=== PATIENT | male | born 1955 | race Caucasian/White ===

== ENCOUNTER 2018-02-13 08:45 | Emergency (ER) | payer OTHER, MEDICAID ==
[2018-02-13 08:50] VITALS: BP 155/101
[2018-02-13] MEDS ORDERED: TDAP ADULT 0.5 ML INJ (BOOSTRIX) IM ONE (08:57)
--- NOTE | 2018-02-13 08:57 | EDPHY ---
H & P Stated Complaint: Skin tear on L arm; "woke up with it", no injury;afraid to clean it himself Time Seen by Provider: 02/13/18 08:53 HPI/ROS: HPI: This is a 62-year-old male who presents with Chief Complaint: left upper arm cut Location: Left upper arm Quality: Cut Duration: This morning Signs and Symptoms: No bleeding, no radiation, no numbness, no weakness, no tingling, no incontinence, no decreased range of motion, no swelling, no pain, no fever Timing: Acute Severity:mild Context: Patient is right-hand dominant, presents with complaints of waking up this morning with a cut on his left upper arm just above his elbow joint. He is unsure of how he sustained this injury. He does not remember falling yesterday and woke up in his bed. He denies any pain/bleeding/paresthesias/ decreased range of motion/warmth. He is unsure of his last tetanus shot. He is not a diabetic. Modifying Factors: Comment: ROS: see HPI Constitutional: No fever, no chills, no weight loss Eyes: No blurred vision Respiratory: No shortness of breath, no cough Cardiovascular: No chest pain Gastrointestinal: No nausea, no vomiting no diarrhea Genitourinary: No dysuria Extremities: No myalgias Neurologic: No weakness, no numbness Skin: No rashes Hematologic: No bruising, no bleeding MEDICAL/SURGICAL/SOCIAL HISTORY: Medical/surgical history: schizophrenia, HTN, colostomy w/reversal, SBO, COPD Social history: Lives alone. Uses the bus for transportation. At times uses a cane to aid ambulation due to chronic low back pain. CONSTITUTIONAL: Extremely well-appearing polite and cooperative elderly white male, appropriately dressed, awake and alert, no obvious distress HEENT: Atraumatic and normocephalic. EXTREMITIES: 2/2 pulses, strength 5/5, left ELBOW: Full extension to 180, flexion to 150, no tenderness over medial epicondyle, no tenderness over lateral epicondyle, no effusion. DIP/PIP/MCP flexion/extension intact with good light touch sensation. no deformities, no clubbing, no cyanosis or edema. NEUROLOGICAL: no focal neuro deficits. GCS 15. Light touch sensation intact. SKIN: Warm and dry, 3/4 inch superficial linear abrasion left upper arm lateral aspect above the left elbow joint; no active bleeding. no erythema. no rash. Good capillary refill. Source: Patient Exam Limitations: No limitations - Personal History Current Tetanus Diphtheria and Acellular Pertussis (TDAP): Yes Tetanus Vaccine Date: unkown - Medical/Surgical History Hx Asthma: No Hx Chronic Respiratory Disease: No Hx Diabetes: No Hx Cardiac Disease: No Hx Renal Disease: No Hx Cirrhosis: No Hx Alcoholism: No Hx HIV/AIDS: No Hx Splenectomy or Spleen Trauma: No Other PMH: schizophrenia, HTN, colostomy w/reversal, SBO, COPD - Social History Smoking Status: Current every day smoker Constitutional: Initial Vital Signs Temperature (C) 36.4 C 02/13/18 08:46 Heart Rate 76 02/13/18 08:46 Respiratory Rate 18 02/13/18 08:46 Blood Pressure 155/101 H 02/13/18 08:46 O2 Sat (%) 98 02/13/18 08:46 O2 Delivery Mode Room Air Allergies/Adverse Reactions: cephalexin monohydrate [From [employer]] Allergy (Unknown, Verified 02/13/18 08:46) Other-Enter Comments Home Medications: Medication Instructions Recorded Benztropine Mesylate [Cogentin (*)] 2 mg PO DAILY 03/05/15 fluPHENAZine HCL [Prolixin 10 MG 10 mg PO DAILY 03/05/15 (*)] Lisinopril [Zestril 10 mg (*)] 10 mg PO 02/13/18 Omeprazole 40 mg PO 02/13/18 Medical Decision Making ED Course/Re-evaluation: Tetanus booster provided Area clean with soap and water; bacitracin and then clean sterile dressing applied. Elbow has full range of motion with no signs of effusion; x-ray imaging not indicated. No signs of infection antibiotics are not indicated. Verbal and written wound care instructions provided No signs of neurovascular compromise/tenting of skin/compartment syndrome/ extremities and joints examined above and below area of concern and are neurovascularly intact/bursitis/septic arthritis/cellulitis. This patient was seen under the supervision of my secondary supervising physician. I evaluated care for this patient independently. Differential Diagnosis: Differential diagnosis includes but is not limited to abrasion, laceration, cellulitis, tenosynovitis, septic arthritis. Departure - Departure Disposition: Home, Routine, Self-Care Clinical Impression: Abrasion of left upper arm, initial encounter Condition: Good Instructions: Abrasion (ED) Additional Instructions: Keep the dressing dry and in place for 48 hours. After 48 hours, you may remove the dressing; wash the site daily with mild soap and water; then pat dry. Apply over the counter topical antibiotic ointment daily until fully healed. Take Tylenol 650 mg every 4 hours and/or Ibuprofen 600 mg every 8 hours with food as needed for pain. Return to the ER immediately if you experience redness, red streaks, have fevers /chills, flu like symptoms, limited range of motion, or any other symptoms that concern you. Referrals: NARCISA VELASQUEZ [Primary Care Provider] - Follow Up Only If Needed
== END 2018-02-13 09:09 | disposition home or self-care (01) ==
DX: S40.812A Abrasion of left upper arm, initial encounter (principal); I10 Essential (primary) hypertension; J44.9 Chronic obstructive pulmonary disease, unspecified; F17.200 Nicotine dependence, unspecified, uncomplicated; Z23 Encounter for immunization; X58.XXXA Exposure to other specified factors, initial encounter

== ENCOUNTER 2018-09-02 17:22 | Emergency (ER) | payer OTHER, MEDICAID ==
[2018-09-02] MEDS ORDERED: KETOROLAC 30 MG/1 ML SDV IM ONE (18:55)
--- NOTE | 2018-09-02 18:56 | EDPHY ---
H & P Smoking Status: Heavy smoker Time Seen by Provider: 09/02/18 18:46 HPI/ROS: CHIEF COMPLAINT: Chronic low back pain HISTORY OF PRESENT ILLNESS: The patient is a 63-year-old male with history of chronic low back pain of unclear etiology. He states he has had multiple MRIs the 1st of which was in 2013 and last of which was approximately a year ago. He is followed by his primary care doctor at [facility] who has appointment to follow-up with regarding his back pain next Thursday. States he has to be treated with tramadol for his pain but currently has only been using ibuprofen which is not controlling his pain. He lives independently but was able to drive himself to the emergency room and is able to ambulate. Denies any numbness or weakness in his legs. He does report radiation of the low back pain into both of his legs. States this is not new and this is usual chronic back pain who does feel the pain this or worsen. He denies any saddle paresthesias, fever, incontinence of bladder or stool. REVIEW OF SYSTEMS: Constitutional: No fever, no chills. Eyes: No discharge. ENT: No sore throat. Cardiovascular: No chest pain, no palpitations. Respiratory: No cough, no shortness of breath. Gastrointestinal: No abdominal pain, no vomiting. Genitourinary: No hematuria. Musculoskeletal: + back pain. Skin: No rashes. Neurological: No headache. (Parth Carrillo) Physical Exam: General Appearance: Alert and no distress. ENT: normal dentition. No tonsillar exudate or swelling. Eyes: Pupils equal and round no injection. Respiratory: Chest is nontender, lungs are clear to auscultation. Cardiac: regular rate and rhythm. No lower extremity edema Gastrointestinal: Abdomen is soft and nontender, no masses, bowel sounds normal. Musculoskeletal: Neck is supple and nontender. Extremities have full range of motion and are nontender without deformity Skin: No rashes or lesions. Neuro: Cranial nerves grossly intact. No nystagmus. Equal strength and sensation in lower extremities. Ambulatory. (Parth Carrillo) Constitutional: Initial Vital Signs Temperature (C) 36.4 C 09/02/18 17:28 Heart Rate 95 09/02/18 17:28 Respiratory Rate 16 09/02/18 17:28 Blood Pressure 123/94 H 09/02/18 17:28 O2 Sat (%) 97 09/02/18 17:28 O2 Delivery Mode Room Air Allergies/Adverse Reactions: cephalexin monohydrate [From [employer]] Allergy (Unknown, Verified 09/02/18 17:27) Other-Enter Comments Home Medications: Medication Instructions Recorded Benztropine Mesylate [Cogentin (*)] 2 mg PO DAILY 03/05/15 fluPHENAZine HCL [Prolixin 10 MG 10 mg PO DAILY 03/05/15 (*)] Lisinopril [Zestril 10 mg (*)] 10 mg PO 02/13/18 Omeprazole 40 mg PO 02/13/18 Tramadol HCl 50 mg PO Q6 PRN #18 tablet 09/02/18 Medical Decision Making Procedures: 63-year-old male here with chronic back pain. He is requesting prescription for pain control at home. After him a shot of Toradol here and a prescription and asked him if he felt comfortable with this plan for disposition and he agrees with this plan. He is given IM Toradol and his pain improved. He was able to ambulate from the emergency room. (Parth Carrillo) ED Course/Re-evaluation: I did not see this patient while he was in the emergency department. However his care was discussed with the PA while the patient was in the department. I agree with treatment plan and management (Savage Shaffer) Differential Diagnosis: Cauda equina, fracture, neoplasm, sciatica, epidural abscess, hip fracture, degenerative disc disease (Parth Carrillo) - Data Points Medications Given: Discontinued Medications Ketorolac Tromethamine (Toradol) 30 mg IM EDNOW ONE Stop: 09/02/18 18:56 Last Admin: 09/02/18 19:05 Dose: 30 mg Departure - Departure Disposition: Home, Routine, Self-Care Clinical Impression: Chronic low back pain with sciatica Condition: Good Instructions: Chronic Back Pain (DC) Additional Instructions: Please follow up with her primary care physician as planned next Thursday. Take tramadol as needed for pain. Return to the ER for loss of control of her bladder or bowels, numbness around her anus, inability to walk or other worrisome symptoms. Referrals: Ericka Melendez MD [Primary Care Provider] - As per Instructions Prescriptions: Tramadol HCl 50 mg PO Q6 PRN #18 tablet PRN Reason: Pain, Breakthrough
[2018-09-02 19:27] VITALS: BP 138/87
== END 2018-09-02 19:31 | disposition home or self-care (01) ==
DX: M54.5 Low back pain (principal); G89.29 Other chronic pain
CPT/HCPCS: 96372; 99284; J1885

== ENCOUNTER 2018-09-03 03:26 | Emergency (ER) | payer OTHER, MEDICAID ==
[2018-09-03] MEDS ORDERED: KETOROLAC 30 MG/1 ML SDV ONE (03:53)
[2018-09-03] MEDS ORDERED: KETOROLAC 30 MG/1 ML SDV IM ONE (03:54)
--- NOTE | 2018-09-03 04:14 | EDPHY ---
H & P Stated Complaint: sciatic pain Time Seen by Provider: 09/03/18 03:37 HPI/ROS: HPI The patient presents with low back pain which is achy in nature which has been present over the last several days and radiates down both of his legs to his toes but is most prominent on his left side. He has a history of sciatica and has previously had an epidural steroid injection about 4 years ago and has had MRI. He says he has a disc herniation at L4-L5. He was previously taking tramadol 3 times a day when he was a [facility] patient. He recently changed his care to [facility]. He had not had back pain up until a few days ago. He was seen in the ER yesterday and was given an injection of Toradol and tramadol. He has not filled his tramadol prescription. He was told to come back if his back pain continued so when he was having trouble sleeping this morning he decided to come in. He does say he has schizophrenia and this is making things challenging for him. He does not have any leg weakness, changes in his bowel or bladder function, fever. REVIEW OF SYSTEMS 10 systems were reviewed and negative with the exception of the elements mentioned in the history of present illness. PMHx: Schizophrenia, hypertension, COPD Soc Hx: Primary care is at [facility], cigarette smoker PHYSICAL General Appearance: Alert, no distress Eyes: Pupils equal and round no pallor or injection ENT, Mouth: Mucous membranes moist Respiratory: There are no retractions, lungs are clear to auscultation Cardiovascular: Regular rate and rhythm Gastrointestinal: Abdomen is soft and non-tender, no masses, bowel sounds normal Back: There is tenderness at the sciatic notch bilaterally with low back tenderness at approximately L4 and L5 Neurological: A&O, cranial nerves 2-12 intact, he has 5/5 strength in his lower extremities and sensation is intact to light touch, he does not have a positive straight leg test Skin: Warm and dry, no rashes Musculoskeletal: Neck is supple non tender Extremities: symmetrical, full range of motion Psychiatric: Patient is oriented X 3, there is no agitation Source: Patient Exam Limitations: No limitations - Personal History Current Tetanus/Diphtheria Vaccine: Yes Current Tetanus Diphtheria and Acellular Pertussis (TDAP): Yes Tetanus Vaccine Date: unkown - Medical/Surgical History Hx Asthma: No Hx Chronic Respiratory Disease: Yes Hx Diabetes: No Hx Cardiac Disease: No Hx Renal Disease: No Hx Cirrhosis: No Hx Alcoholism: No Hx HIV/AIDS: No Hx Splenectomy or Spleen Trauma: No Other PMH: schizophrenia, HTN, colostomy w/reversal, SBO, COPD, sciatica, hyponatremia - Social History Smoking Status: Heavy smoker Constitutional: Initial Vital Signs Temperature (C) 36.4 C 09/03/18 03:32 Heart Rate 102 H 09/03/18 03:32 Respiratory Rate 18 09/03/18 03:32 Blood Pressure 167/130 H 09/03/18 03:32 O2 Sat (%) 99 09/03/18 03:32 O2 Delivery Mode Room Air Allergies/Adverse Reactions: cephalexin monohydrate [From [employer]] Allergy (Unknown, Verified 09/02/18 17:27) Other-Enter Comments Home Medications: Medication Instructions Recorded Benztropine Mesylate [Cogentin (*)] 2 mg PO DAILY 03/05/15 fluPHENAZine HCL [Prolixin 10 MG 10 mg PO DAILY 03/05/15 (*)] Lisinopril [Zestril 10 mg (*)] 10 mg PO 02/13/18 Omeprazole 40 mg PO 02/13/18 Tramadol HCl 50 mg PO Q6 PRN #18 tablet 09/02/18 Medical Decision Making Differential Diagnosis: This is a 63-year-old man with schizophrenia with history of sciatica who presents with worsening of his low back pain which radiates to both of his legs. Seen in the ER yesterday, given Toradol with good result. He was given a prescription for tramadol though has not filled it yet. He was concerned because his pain had not improved and he comes to the ER again. He does not have any fevers, weakness, other concerning features to his presentation. This feels like his prior sciatica. I have encouraged ibuprofen and Tylenol. He can take Ultram as needed. I do not think he is a good candidate for prednisone given his history of schizophrenia. He was given a dose of Toradol here with improvement. He will be discharged with instructions to [facility]. He has had an epidural steroid injection before and would like to consider trying this again. - Data Points Medications Given: Discontinued Medications Ketorolac Tromethamine (Toradol) 30 mg IM EDNOW ONE Stop: 12/21/18 03:55 Last Admin: 09/03/18 03:55 Dose: 30 mg Departure - Departure Disposition: Home, Routine, Self-Care Clinical Impression: Sciatica Condition: Good Instructions: Lower Back Exercises (ED), Sciatica (ED) Additional Instructions: I recommend you take ibuprofen 400 mg every 6 hr for your back pain. You can take the prescription your given on her last ED visit as well. I do recommend you have follow up with [facility] to discuss physical therapy if your symptoms continue. Referrals: Ericka Melendez MD [Primary Care Provider] - As per Instructions
[2018-09-03] MEDS ORDERED: traMADol 50 MG TAB PO ONE (04:45)
[2018-09-03 05:03] VITALS: BP 157/101
== END 2018-09-03 05:03 | disposition home or self-care (01) ==
DX: M54.32 Sciatica, left side (principal); J44.9 Chronic obstructive pulmonary disease, unspecified; I10 Essential (primary) hypertension; F20.9 Schizophrenia, unspecified; E87.1 Hypo-osmolality and hyponatremia; F17.200 Nicotine dependence, unspecified, uncomplicated
CPT/HCPCS: 96372; 99284; J1885